=== PATIENT | female | born 1975 | race Caucasian/White ===

== ENCOUNTER 2021-10-13 10:01 | Outpatient (REF) | payer OTHER, SELFPAY | END 2021-10-13 10:02 | disposition home or self-care (01) | LOC: HO.WFDLDS 10:01 | PROVIDERS: Visit Provider Hospitalist | DX: Z20.822 Contact with and (suspected) exposure to COVID-19 (principal); J02.8 Acute pharyngitis due to other specified organisms; B97.89 Other viral agents as the cause of diseases classified elsewhere | CPT/HCPCS: U0003; U0005 ==

== ENCOUNTER 2021-11-20 09:22 | Outpatient (REF) | payer OTHER, SELFPAY ==
[2021-11-20 11:13] LABS: MANUAL DIFF FLAG NO
[2021-11-20 11:19] LABS: Basophils Percent Auto 0.6 % (0-2); Eosinophils Absolute Auto 0.2 X10*3/uL (0.0-0.4); Eosinophils Percent Auto 2.6 % (0-4); Hematocrit 39.8 % (37.0-47.0); Hemoglobin 12.9 g/dl (12.0-16.0); Imm Gran Abs Auto 0.02 X10*3/uL (0.00-0.03); Imm Gran Pct Auto 0.3 % (0.0-0.4); Lymphocytes Absolute Auto 1.4 X10*3/uL (1.2-4.9); Mean Corpuscular HGB Conc 32.4 g/dl (31.0-35.0); Mean Corpuscular Hemoglobin 27.6 pg (27.0-33.0); Mean Platelet Volume 10.4 fL (9.4-12.3); Monocytes Absolute Auto 0.6 X10*3/uL (0.1-1.2); Monocytes Percent Auto 8.8 % (2-11); Neutrophils Absolute Auto 4.9 x10*3/uL (2.0-8.3); Neutrophils Percent Auto 67.7 % (45-73); Platelet Count 344 X10*3/uL (160-400); Red Blood Count 4.68 X10*6/uL (4.20-5.50); Red Cell Distribution Width 14.7 % (11.0-16.0); White Blood Count 7.2 X10*3/uL (4.8-10.8)
[2021-11-20 11:54] LABS: Alanine Aminotransferase 15 U/L (0-31); Albumin Level 4.1 g/dL (3.5-5.0); Alkaline Phosphatase 77 U/L (39-117); Anion Gap 14 (12-20); Aspartate Amino Transferase 14 U/L (5-31); Bilirubin Direct 0.2 mg/dL (0.0-0.5); Bilirubin Total 0.5 mg/dL (0.0-1.0); Blood Urea Nitrogen 19 mg/dL (9-16); Calcium 9.2 mg/dL (8.4-10.2); Carbon Dioxide 26 mmol/L (22-29); Chloride 102 mmol/L (96-108); Cholesterol 211 mg/dL; Estimated Glomerular Filt Rate > 60; Glucose Fasting 96 mg/dL (60-99); HDL Cholesterol 61 mg/dL; LDL Cholesterol Calculated 136 mg/dl; Potassium 4.7 mmol/L (3.3-5.1); Sodium 137 mmol/L (135-145); Triglycerides 74 mg/dL
[2021-11-20 11:56] LABS: TSH reflex Free T4 5.18 uIU/mL (0.32-4.0)
[2021-11-20 12:03] LABS: Vitamin B12 300 pg/mL (200-900)
[2021-11-20 12:49] LABS: Free T4 (Free Thyroxine) 0.78 ng/dL (0.71-1.85)
[2021-11-24 11:37] LABS: Vitamin D 25-OH, D2 <4 ng/mL; Vitamin D 25-OH, D3 20 ng/mL; Vitamin D 25-OH, Total 20 ng/mL (30-100)
== END 2021-11-20 09:23 | disposition home or self-care (01) ==
LOC: HO.HMGCLDS 09:22
PROVIDERS: Internal Medicine; Visit Provider Family Medicine
DX: E55.9 Vitamin D deficiency, unspecified (principal); E53.8 Deficiency of other specified B group vitamins; F33.9 Major depressive disorder, recurrent, unspecified; F41.1 Generalized anxiety disorder; I10 Essential (primary) hypertension
CPT/HCPCS: 36415; 80048; 80061; 80076; 82306; 82607; 84439; 84443; 85025

== ENCOUNTER 2022-01-30 10:50 | Outpatient (REF) | payer OTHER, SELFPAY ==
[2022-01-30 14:03] LABS: Free T4 (Free Thyroxine) 0.74 ng/dL (0.71-1.85)
[2022-02-01 06:56] LABS: Triiodothyronine T3 Total 109 ng/dL (76-181)
== END 2022-01-30 10:51 | disposition home or self-care (01) ==
LOC: HO.WFDLDS 10:50
PROVIDERS: Visit Provider Family Medicine
DX: E03.9 Hypothyroidism, unspecified (principal)
CPT/HCPCS: 36415; 84439; 84443; 84480

== ENCOUNTER → 2022-05-08 09:08 | Outpatient (BNVA) | payer OTHER, SELFPAY | PROVIDERS: PCP Family Medicine; Visit Provider Internal Medicine Endocrinology, Diabetes & Metabolism | DX: E03.9 Hypothyroidism, unspecified (principal) | CPT/HCPCS: 99202 ==

== ENCOUNTER 2022-07-10 10:00 | Outpatient (REF) | payer OTHER, SELFPAY ==
[2022-07-10 13:50] LABS: Free T4 (Free Thyroxine) 1.07 ng/dL (0.71-1.85); Thyroid Stimulating Hormone 1.93 uIU/mL (0.32-4.0)
[2022-07-16 18:01] LABS: Thyroid Peroxidase Antibodies 243 IU/mL (<9)
== END 2022-07-10 10:01 | disposition home or self-care (01) ==
LOC: HO.WFDLDS 10:00
PROVIDERS: Visit Provider Internal Medicine Endocrinology, Diabetes & Metabolism
DX: E03.9 Hypothyroidism, unspecified (principal)
CPT/HCPCS: 36415; 84439; 84443; 86376

== ENCOUNTER 2022-10-25 16:22 | Outpatient (REF) | payer OTHER, SELFPAY ==
--- NOTE | ~2022-10-25 | XR_ITS ---
EXAMINATION: XR SHOULDER, LEFT CLINICAL INFORMATION: Shoulder pain COMPARISON: None TECHNIQUE: Three views of the left shoulder. FINDINGS: No fracture or dislocation. The glenohumeral joint is well aligned. The joint space is maintained. The acromioclavicular joint is intact. The visualized lung is clear. The visualized ribs are intact. XR/XR shoulder LT min 2V IMPRESSION: Normal left shoulder.
== END 2022-10-25 16:23 | disposition home or self-care (01) ==
LOC: HO.HOSX 16:22
PROVIDERS: Visit Provider Orthopaedic Surgery
DX: M75.02 Adhesive capsulitis of left shoulder (principal)
CPT/HCPCS: 20610; 73030; 99202; J1100

== ENCOUNTER 2023-04-26 14:03 | Outpatient (AMB) | payer OTHER, SELFPAY ==
[2023-04-26 14:07] VITALS: BP 128/66; PULSE 90; RESP 12; TEMP 36.6; O2SAT 99; BMI 39.7
--- NOTE | 2023-04-26 14:07 | A.OFFPC_ITS ---
Vital Signs 04/26/23 14:07 Height 5 ft 5 in Weight 238 lb 6 oz BMI 39.7 BP 128/66 Blood Pressure Location Rt brachial Position Sitting Respiration 12 Pulse 90 Pulse Source Pulse Oximeter Temp 97.9 F Temp Source Temporal Artery Scan Pulse Oximetry (%) 99 Oxygen Delivery Method Room Air Intake Visit Reasons: CPE Commercial Lender Required: No Accompanied by: Self / Same As Patient Allergies No Known Allergies [No Known Allergies*] Allergy (Verified 04/26/23 14:13) Medication List - Last Reconciled 04/26/23 by Stas Del Toro MD cholecalciferol (vitamin D3) 50 mcg PO DAILY 30 days clonidine HCl 0.1 mg PO BEDTIME PRN cyclobenzaprine 10 mg PO Q12H PRN 5 days levothyroxine 75 mcg PO DAILY 90 days lisinopril-hydrochlorothiazide 10-12.5 mg 1 tab PO DAILY 3 months sertraline 75 mg (1.5 x 50 mg) PO DAILY 30 days Tobacco use date assessed: 04/26/23 Dental Screening Dental Screen Date: 04/26/23 Did you have a dental visit in the last 12 months?: No Did you have a dental problem in the last 6 months where you did not have access to dental care?: Yes Was dental information given to patient?: Yes HPI CPE HPI Details 48 y/o female presents for a CPE with f/u labs and health maintenance. No recent labs to review. Blood pressure today is 128/66. She is on lisinopril-HCTZ 10-12.5mg daily. She notes she did not take her meds this morning and questions whether or not she can drop a BP medication. 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 She notes she has tried scheduling for a colonoscopy but the group she had called had been behind. [facility] Medical History No pertinent past medical history Surgical History History of section Family History Father Diabetes mellitus HTN (hypertension) History of CVA (cerebrovascular accident) High cholesterol Mother Diabetes mellitus HTN (hypertension) Colon polyps Paternal Grandmother Diabetes mellitus Brother No problems noted. Brother No problems noted. Sister No problems noted. Sister No problems noted. Daughter No problems noted. 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 1. Little interest or pleasure in doing things: not at all 2. Feeling down, depressed, or hopeless: not at all 3. Trouble falling or staying asleep, or sleeping too much: several days 4. Feeling tired or having little energy: several days 5. Poor appetite or overeating: not at all 6. Feeling bad about yourself - or that you are a failure or have let yourself or your family down: not at all 7. Trouble concentrating on things, such as reading the newspaper or watching television: not at all 8. Moving or speaking so slowly that other people could have noticed. Or the opposite - being so fidgety or restless that you have been moving around a lot more than usual: not at all 9. Thoughts that you would be better off or of hurting yourself in some way: not at all Total score: 2 Depression Screening Interpretation: Negative Source: Developed by Drs. Tony Gutiérrez, Danni Lim, Héctor Calle and colleagues, with an educational chu from [employer]. Thrive Questionnaire Date Thrive assessed: 04/26/23 I am a: Patient What is your living situation today?: I have a steady place to live Within the past 12 months, did the food you bought not last and you didn't have the money to get more?: Never true Within the past 12 months, did you worry whether your food would run out before you got money to buy more?: Never true Do you have trouble paying for medicines?: No Do you have trouble getting transportation to medical appointments?: No Do you have trouble paying your heating and electricity bill?: No Do you have trouble taking care of your child, family member or friend?: No Do you have trouble with day-to-day activities such as bathing, preparing meals, shopping, managing finances, etc.?: No Are you currently unemployed and looking for a job?: No Are you interested in more education?: No Please select the resources that you would like help with: None Currently or been in a relationship where the following occur: no concerns reported AUDIT C Alcohol Use Questionnaire (AUDIT-C) 1. How often do you have a drink containing alcohol?: 2-3 times a week 2. How many drinks containing alcohol do you have on a typical day when you are drinking?: 1 or 2 3. How often do you have six or more drinks on one occasion?: Never Total Score: 3 IBRAHIMA-7 AMB Questionnaire IBRAHIMA-7 Date IBRAHIMA - 7 assessed: 04/26/23 Feeling nervous, anxious, or on edge: 0 = Not at all Not being able to stop or control worryin = Not at all Worrying too much about different things: 0 = Not at all Trouble relaxin = Not at all Being so restless that it is hard to sit still: 0 = Not at all Becoming easily annoyed or irritable: 0 = Not at all Feeling afraid as if something awful might happen: 0 = Not at all Total IBRAHIMA-7 score (0-4 normal; 5-9 mild; 10-14 moderate; 15-21 severe): 0 Source: Developed by Drs. Tony Gutiérrez, Danni Lim, Héctor Calle and colleagues, with an educational chu from [employer]. Review of Systems Const Denies chills, Denies fatigue, Denies fever(s), Denies headache(s) and Denies weakness Eyes Denies change in vision ENT Denies dizziness, Denies headache(s), Denies hearing loss, Denies nasal congestion, Denies sinus pain, Denies sinus pressure and Denies sore throat Card Denies chest pain, Denies lightheadedness, Denies dyspnea and Denies other (palpitations) Resp Denies cough, Denies dyspnea and Denies wheezing GI Denies abdominal pain, Denies melena, Denies hematochezia, Denies change in bowel habits, Denies dyspepsia and Denies nausea Denies hematuria and Denies dysuria Musc Denies abnormal gait, Denies myalgias, Denies arthralgias, Denies numbness and Denies tingling Skin/Breast Denies rash, Denies unusual bruising and Denies wounds Neuro Denies abnormal gait, Denies dizziness, Denies headache(s), Denies memory loss, Denies numbness, Denies Sensory deficit (Neuro), Denies tingling and Denies weakness Psych Denies anxiety, Denies depression and Denies memory loss Endo Denies cold intolerance, Denies fatigue, Denies heat intolerance, Denies polydipsia and Denies polyuria Dave/Lymph Denies easy bleeding and Denies easy bruising Aller/Immun Denies wheezing Physical exam (Primary Care) Vital Signs: Last Vital Signs Temp 97.9 F 04/26/23 14:07 Pulse 90 04/26/23 14:07 Resp 12 04/26/23 14:07 BP 128/66 04/26/23 14:07 Pulse Ox 99 04/26/23 14:07 Oxygen Delivery Method Room Air 04/26/23 14:07 BMI result Body Mass Index 39.7 Tobacco/Smoking Status: Tobacco use Status Tobacco use date assessed 04/26/23 04/26/23 14:21 Patient Tobacco Use Status Never used Tobacco 04/26/23 14:21 e-Cigarette/Vaping Use Never Used 04/26/23 14:21 PHQ-9: PHQ-9 Score PHQ-9: Total score 2 04/26/23 14:36 Depression Screening Interpretation: Negative Thrive Assessment: Date of Thrive Assessment Date Thrive assessed 04/26/23 04/26/23 14:21 Currently or been in a relationship where the following occur: no concerns reported Const General: no acute distress, well developed, alert and awake Nutritional Appearance: well nourished Orientation/consciousness: patient oriented x3 HENMT Head: Yes normocephalic and Yes atraumatic Ears: hearing grossly normal bilaterally and TM's normal bilaterally General nose exam: Normal external nose present and Normal nares present Mouth: Normal oral and palatal mucosa present and moist mucous membranes Teeth and gingiva: dentition normal Throat: Yes posterior oropharynx normal Eyes General: appearance normal, both eyes and all related structures Pupils: Equal, round and reactive pupils present and Pupil accommodation reflex normal EOM: EOMs intact bilaterally Neck Neck: Yes normal visual inspection, Yes no lymphadenopathy and Yes trachea midline Thyroid: Thyroid normal Carotids: no bruits Lymphatic: no lymphadenopathy noted Chest Chest palpation & inspection: normal inspection of the chest Resp Effort & Inspection: normal respiratory effort Auscultation: clear to auscultation bilaterally Cardio Rate: regular rate Rhythm: regular rhythm Heart sounds: S1 normal heart sound present, S2 normal heart sound present, no gallops, no murmurs and no rubs Bruits: no abdominal aortic bruits and no carotid bruits GI Palpation (GI): No Abdominal aortic bruit present, Soft to palpation, nontender, No hepatosplenomegaly present and No Rebound tenderness present Auscultation: normal bowel sounds General: Yes no CVA tenderness Back/Spine/Pelvis Back: no CVA tenderness Cervical Spine: cervical ROM normal and No Cervical spine tenderness Thoracic/Lumbar Spine: thoraco-lumbar ROM normal, No pain with thoraco-lumbar ROM, No thoracic spinal tenderness and No lumbar spinal tenderness Skin Lesions: no lesions Rashes: no rashes Trauma: no lacerations or abrasions Wounds: no wounds Nails: normal Neuro General: patient oriented x3 Cranial nerves: Yes Equal, round and reactive pupils present Cognition (Neuro): normal cognition Gait exam (Neuro): Normal gait present Motor exam (neuro): 5/5 motor strength present throughout Sensory Exam: No Sensory deficit (Neuro) Deep tendon reflexes (DTR's): Right patellar reflex intensity grade: 2+ and Left patellar reflex intensity grade: 2+ Extrem General: Yes normal to inspection and No edema Psych Appearance: grossly normal Affect: normal affect Attitude: cooperative Thought process: Normal thought process present Assessment and Plan Assessment & Plan (1) Adult general medical exam: Code(s): Z00.00 - Encounter for general adult medical examination without abnormal findings Plan: 48-year-old female presents for complete physical exam Encouraged healthy diet with active lifestyle and plenty of exercise (2) Hypertension, essential: Code(s): I10 - Essential (primary) hypertension Plan: Blood pressure is controlled. Goal is less than 140/90 Continue current medication regimen (3) Breast cancer screening by mammogram: Code(s): Z12.31 - Encounter for screening mammogram for malignant neoplasm of breast Plan: Patient is overdue for a mammogram Mammogram is ordered and I encouraged her to schedule her appointment (4) Screening for cervical cancer: Code(s): Z12.4 - Encounter for screening for malignant neoplasm of cervix Plan: Due for Pap smear Referred to [facility] (5) Screening for colon cancer: Code(s): Z12.11 - Encounter for screening for malignant neoplasm of colon Plan: Already referred to [facility] She will continue to follow up or let me know if there is any problem Orders: Orders MM tomosynthesis screening BI Today Z12.31 - Encounter for screening mammogram for malignant neoplasm of breast Comprehensive [place]. Panel Fast Today Z00.00 - Encounter for general adult medical examination without abnormal findings, Z12.4 - Encounter for screening for malignant neoplasm of cervix Lipid Panel Today Z00.00 - Encounter for general adult medical examination without abnormal findings, Z12.4 - Encounter for screening for malignant neoplasm of cervix Microalbumin, Random (w Creat) Today I10 - Essential (primary) hypertension, Z12.4 - Encounter for screening for malignant neoplasm of cervix Complete Blood Count Auto Diff Today Z00.00 - Encounter for general adult m edical examination without abnormal findings, Z12.4 - Encounter for screening for malignant neoplasm of cervix UA and rflx microscopic Today Z00.00 - Encounter for general adult medical examination without abnormal findings, Z12.4 - Encounter for screening for malignant neoplasm of cervix Triiodothyronine T3 Total Today E03.9 - Hypothyroidism, unspecified, Z12.4 - Encounter for screening for malignant neoplasm of cervix Free T4 (Free Thyroxine) Today E03.9 - Hypothyroidism, unspecified, Z12.4 - Encounter for screening for malignant neoplasm of cervix Thyroid Stimulating Hormone Today E03.9 - Hypothyroidism, unspecified, Z12.4 - Encounter for screening for malignant neoplasm of cervix Referrals CIVIL CLERK Referral Z12.4 - Encounter for screening for malignant neoplasm of cervix Coding Level of Care Code Est Pt Prev Care 40-64y(07042) Diagnoses Adult general medical exam Z00.00 Hypertension, essential I10 Breast cancer screening by mammogram Z12.31 Screening for cervical cancer Z12.4 Screening for colon cancer Z12.11
== END 2023-04-26 14:52 | disposition home or self-care (01) ==
PROVIDERS: PCP Family Medicine; Visit Provider Family Medicine
DX: Z00.00 Encounter for general adult medical examination without abnormal findings (principal); I10 Essential (primary) hypertension; Z12.31 Encounter for screening mammogram for malignant neoplasm of breast; Z12.4 Encounter for screening for malignant neoplasm of cervix; Z12.11 Encounter for screening for malignant neoplasm of colon
CPT/HCPCS: 99396

== ENCOUNTER 2023-10-30 09:07 | Outpatient (AMB) | payer OTHER, SELFPAY ==
[2023-10-30 09:13] VITALS: BP 130/74; PULSE 76; RESP 13; TEMP 36.4; O2SAT 99; BMI 41.0
--- NOTE | 2023-10-30 09:13 | A.OFFPC_ITS ---
Vital Signs 10/30/23 09:13 Height 5 ft 5 in Weight 246 lb 4 oz BMI 41.0 BP 130/74 Blood Pressure Location Rt brachial Position Sitting Respiration 13 Pulse 76 Pulse Source Pulse Oximeter Temp 97.6 F Temp Source Temporal Artery Scan Pulse Oximetry (%) 99 Oxygen Delivery Method Room Air Intake Visit Reasons: [facility] Intake Note: Patient states she was told that she has gallstones. Client Support Associate Required: No Accompanied by: Self / Same As Patient Allergies No Known Allergies [No Known Allergies*] Allergy (Verified 10/30/23 09:48) Medication List - Last Reconciled 10/30/23 by Cori Brown, PATROL COMMUNITY SERVICE OFFICER- cholecalciferol (vitamin D3) 50 mcg PO DAILY 30 days clonidine HCl 0.1 mg PO BEDTIME PRN levothyroxine 75 mcg PO DAILY 90 days lisinopril-hydrochlorothiazide 10-12.5 mg 1 tab PO DAILY 3 months sertraline 75 mg (1.5 x 50 mg) PO DAILY 30 days Tobacco use date assessed: 10/30/23 Dental Screening Dental Screen Date: 10/30/23 Did you have a dental visit in the last 12 months?: No Did you have a dental problem in the last 6 months where you did not have access to dental care?: No Was dental information given to patient?: Yes HPI HPI Comments History of Present Illness Details Here today for hospital discharge follow-up She went to [facility] 10/24[facility]23 for complaints of: Unbearable abd pain w/ vomiting that started the day of the visit US showed gallstones otherwise negative. Offered and declined CT scan Discharge home with New meds: omeprazole - taking as directed Zofran - has not needed Today reports that she is feeling much better. Avoiding fatty foods since. Notes pain in abd after eating foods that are higher in fat. No more n/v. Normal voiding and elimination Denies fever, chills. PFSH Medical History Gallstones No pertinent past medical history Surgical History History of section Family History Father Diabetes mellitus HTN (hypertension) History of CVA (cerebrovascular accident) High cholesterol Mother Diabetes mellitus HTN (hypertension) Colon polyps Paternal Grandmother Diabetes mellitus Brother No problems noted. Brother No problems noted. Sister No problems noted. Sister No problems noted. Daughter No problems noted. 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 Tony Gutiérrez, Danni Lim, Héctor Calle and colleagues, with an educational chu from [employer]. Review of Systems Const All systems reviewed & are unremarkable except as noted in HPI and below Physical exam (Primary Care) Vital Signs: Last Vital Signs Temp 97.6 F 10/30/23 09:13 Pulse 76 10/30/23 09:13 Resp 13 10/30/23 09:13 BP 130/74 10/30/23 09:13 Pulse Ox 99 10/30/23 09:13 Oxygen Delivery Method Room Air 10/30/23 09:13 BMI result Body Mass Index 41.0 Tobacco/Smoking Status: Tobacco use Status Tobacco use date assessed 10/30/23 10/30/23 09:20 Patient Tobacco Use Status Never used Tobacco 10/30/23 09:20 e-Cigarette/Vaping Use Never Used 10/30/23 09:20 Thrive Assessment: Date of Thrive Assessment Date Thrive assessed 04/26/23 10/30/23 09:20 Const Other: awake alert NAD scleras nonicteric MMM Abd soft, round, nontender, negative murphys sign, negative peritoneal signs, bs wnl x 4 quads Assessment and Plan Assessment & Plan (1) Hospital discharge follow-up: Code(s): Z09 - Encounter for follow-up examination after completed treatment for conditions other than malignant neoplasm (2) Biliary colic: Code(s): K80.50 - Calculus of bile duct without cholangitis or cholecystitis without obstruction (3) Gallstones without obstruction of gallbladder: Code(s): K80.20 - Calculus of gallbladder without cholecystitis without obstruction Qualifiers: Cholelithiasis location: gallbladder Cholecystitis presence: without cholecystitis Qualified Code(s): K80.20 - Calculus of gallbladder without cholecystitis without obstruction Plan: Total time spent caring for the patient today was 40 minutes. This includes time spent before the visit reviewing the chart, time spent during the visit, and time spent after the visit on documentation We will send her to the general surgeon for evaluation and treatment. She was educated on reasons to seek emergency room level care and that would include severe abdominal pain, nausea and vomiting that is not responsive to Zofran. Plan This note is constructed using voice recognition software. While every effort has been made to ensure accuracy in property maintenance supervisor, still errors may have been included Sometimes, these errors may affect the content or meaning of the given sentence . Orders: Referrals General Surgery Referral K80.20 - Calculus of gallbladder without cholecystitis without obstruction, K80.50 - Calculus of bile duct without cholangitis or chol ecystitis without obstruction, Z09 - Encounter for follow-up examination after completed treatment for conditions other than malignant neoplasm Coding Level of Care Code Est Pt Level 5 (10325) Diagnoses Hospital discharge follow-up Z09 Biliary colic K80.50 Calculus of gallbladder without cholecystitis without obstruction K80.20 Cholelithiasis location: gallbladder Cholecystitis presence: without cholecystitis
== END 2023-10-30 10:06 | disposition home or self-care (01) ==
PROVIDERS: PCP Family Medicine; Visit Provider Nurse Practitioner Family
DX: K80.50 Calculus of bile duct without cholangitis or cholecystitis without obstruction (principal); K80.20 Calculus of gallbladder without cholecystitis without obstruction; Z09 Encounter for follow-up examination after completed treatment for conditions other than malignant neoplasm
CPT/HCPCS: 99215

== ENCOUNTER 2023-11-11 14:02 | Outpatient (AMB) | payer OTHER, SELFPAY ==
[2023-11-11 14:15] VITALS: BP 142/65; PULSE 70; BMI 40.6
--- NOTE | 2023-11-11 14:15 | A.OFFVIS_ITS ---
Intake Vital Signs 11/11/23 14:15 Height 5 ft 5 in Weight 244 lb BMI 40.6 BP 142/65 H Blood Pressure Location Rt brachial Position Sitting Pulse 70 Intake Visit Reasons: calculus of gallbladder Intake Note: This patient presents for calculus of the gallbladder assessment. Pt c/o; reports occasional constipation, reports avoiding fatty foods, reports had an episode of nausea and vomiting has improved. Funeral Sales Manager Required: No Accompanied by: Self / Same As Patient Allergies No Known Allergies [No Known Allergies*] Allergy (Verified 11/11/23 14:22) Medication List - Last Reconciled 11/11/23 by Shlomo Zhao MD cholecalciferol (vitamin D3) 50 mcg PO DAILY 30 days clonidine HCl 0.1 mg PO BEDTIME PRN levothyroxine 75 mcg PO DAILY 90 days lisinopril-hydrochlorothiazide 10-12.5 mg 1 tab PO DAILY 3 months sertraline 75 mg (1.5 x 50 mg) PO DAILY 30 days HPI calculus of gallbladder HPI Details 48[facility] She apparently had a ultrasound done in the ER in [facility] last month. She was told that she had gallstones. She states that she went to the ER that day because of diffuse abdominal pain and a lot of nausea and vomiting. She says that she has had no further episodes since then. She does state that her pain was not on the right upper quadrant. She says she has had no other GI complaints anymore. [facility] Medical History (Updated 11/11/23 @ 14:31 by Shlomo Zhao MD) Thyroid disease Hypertension Morbid obesity Gallstones No pertinent past medical history Surgical History History of section Family History Father Diabetes mellitus HTN (hypertension) History of CVA (cerebrovascular accident) High cholesterol Mother Diabetes mellitus HTN (hypertension) Colon polyps Paternal Grandmother Diabetes mellitus Brother No problems noted. Brother No problems noted. Sister No problems noted. Sister No problems noted. Daughter No problems noted. 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 Current occupational exposures/hazards: No Cognitive needs: No Hearing needs: No Vision needs: No Review of Systems Const Denies chills and Denies fever(s) Card Denies chest pain, Denies dyspnea and Denies dyspnea on exertion Resp Denies cough, Denies dyspnea and Denies dyspnea on exertion GI Denies hematochezia and Denies change in bowel habits Denies hematuria Musc Denies back pain and Denies limited range of motion Neuro Denies focal weakness and Denies convulsions Psych Denies depression and Denies mood swings Physical Exam Vital Signs: Last Vital Signs Pulse 70 11/11/23 14:15 BP 142/65 H 11/11/23 14:15 BMI result Body Mass Index 40.6 Const Other: Morbidly obese General: comfortable and no acute distress Orientation/consciousness: patient oriented x3 Neck Neck: Yes no lymphadenopathy Resp Auscultation: clear to auscultation bilaterally Cardio Rhythm: regular rhythm GI Palpation (GI): Soft to palpation, nontender and no guarding Neuro General: patient oriented x3 Assessment & Plan Assessment & Plan (1) Gallstones without obstruction of gallbladder: Code(s): K80.20 - Calculus of gallbladder without cholecystitis without obstruction Qualifiers: Cholelithiasis location: gallbladder Cholecystitis presence: without cholecystitis Qualified Code(s): K80.20 - Calculus of gallbladder without cholecystitis without obstruction Plan: She describes having diffuse abdominal pain and a lot of nausea and vomiting when she went to the ER last month in [facility]. She has had no further episodes since then. Her abdominal ultrasound did show gallstones without cholecystitis Her pain is atypical for gallbladder disease. I am going to order for a CAT scan in her of the abdomen pelvis. I will see her in the office after her CT scan. She states that she is also due for screening colonoscopy. She describes her mother having colon cancer in her 60s. We will schedule her for colonoscopy as well down the line. Orders: Orders Creatinine Today K80.20 - Calculus of gallbladder without cholecystitis without obstruction CT abdomen pelvis w IV con Today K80.20 - Calculus of gallbladder without cholecystitis without obstruction Blood Urea Nitrogen Today K80.20 - Calculus of gallbladder without cholecystitis without obstruction Coding Level of Care Code New Pt Level 3 (34766) Diagnoses Calculus of gallbladder without cholecystitis without obstruction K80.20 Cholelithiasis location: gallbladder Cholecystitis presence: without cholecystitis
== END 2023-11-11 14:41 | disposition home or self-care (01) ==
PROVIDERS: PCP Family Medicine; Visit Provider Surgery
DX: K80.20 Calculus of gallbladder without cholecystitis without obstruction (principal)
CPT/HCPCS: 99203

== ENCOUNTER 2023-11-11 14:02 | Outpatient (REF) | payer OTHER, SELFPAY ==
[2023-11-11 16:15] LABS: Blood Urea Nitrogen 22 mg/dL (9-16); Estimated Glomerular Filt Rate > 60
== END 2023-11-11 14:03 | disposition home or self-care (01) ==
LOC: HO.LAB 14:02
PROVIDERS: PCP Family Medicine; Visit Provider Surgery
DX: K80.20 Calculus of gallbladder without cholecystitis without obstruction (principal); Z79.899 Other long term (current) drug therapy
CPT/HCPCS: 36415; 82565; 84520; 99202

== ENCOUNTER 2023-12-11 11:01 | Outpatient (REF) | payer OTHER, SELFPAY ==
[2023-12-12 11:46] LABS: CT PCR NOT DETECTED (Not Detect.); NG PCR NOT DETECTED (Not Detect.)
[2023-12-12 14:05] LABS: BV Int Neg Control Negative (Negative); BV Int Pos Control Positive (Positive)
[2023-12-21 09:18] LABS: HPV mRNA E6/E7 rflx Not Detected (Not Detected)
== END 2023-12-11 11:02 | disposition home or self-care (01) ==
LOC: HO.LNP 11:01
PROVIDERS: PCP Family Medicine; Visit Provider Advanced Practice Midwife
DX: Z01.419 Encounter for gynecological examination (general) (routine) without abnormal findings (principal); Z11.51 Encounter for screening for human papillomavirus (HPV); Z11.3 Encounter for screening for infections with a predominantly sexual mode of transmission; E66.9 Obesity, unspecified
CPT/HCPCS: 0353U; 87480; 87510; 87624; 87660; 88142; 99386

== ENCOUNTER 2023-12-11 11:01 | Outpatient (AMB) | payer OTHER, SELFPAY ==
[2023-12-11 11:23] VITALS: BP 144/72; BMI 39.4
--- NOTE | 2023-12-11 11:23 | MHC.OFFVIS ---
Intake Vital Signs 12/11/23 11:23 Height 5 ft 6 in Weight 244 lb BMI 39.4 BP 144/72 H Intake Visit Reasons: New patient Annual Intake Note: Irregular menses Prototype Assembler Electronics Required: No Information Interpreted: non-clinical & clinical Research Laboratory Manager: Research Laboratory Manager Present (Roberto) Allergies No Known Allergies [No Known Allergies*] Allergy (Verified 12/11/23 11:25) Medication List - Last Reconciled 12/11/23 by Marlin Walters CNM cholecalciferol (vitamin D3) 50 mcg PO DAILY 30 days clonidine HCl 0.1 mg PO BEDTIME PRN levothyroxine 75 mcg PO DAILY 90 days lisinopril-hydrochlorothiazide 10-12.5 mg 1 tab PO DAILY 3 months sertraline 75 mg (1.5 x 50 mg) PO DAILY 30 days Is last menstrual period known: Yes Last menstrual period: 12/02/23 Post menopausal: No HPI New patient Annual HPI Details 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 She has not having any particular concerns today, she is starting to miss periods here and there. She does have some menopausal symptoms. She is awaiting a workup for an episode of severe abdominal pain and will be seeing a surgeon after a CT scan. She has not seen a dentist in a long time she has poor dentition. 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 COUNTS INCLUDE 234 BEDS AT THE [facility] Medical History (Updated 12/11/23 @ 16:05 by Marlin Walters CNM) Thyroid disease Hypertension Morbid obesity Gallstones No pertinent past medical history Surgical History History of section Family History Father Diabetes mellitus HTN (hypertension) History of CVA (cerebrovascular accident) High cholesterol Mother Diabetes mellitus HTN (hypertension) Colon polyps Paternal Grandmother Diabetes mellitus Brother No problems noted. Brother No problems noted. Sister No problems noted. Sister No problems noted. Daughter No problems noted. 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 Current occupational exposures/hazards: No Cognitive needs: No Hearing needs: No Vision needs: No Female Reproductive History Menstrual Age of Menarche: 14 Duration of menses: 3-5 days Date of last menstrual period: 12/02/23 control method: none Total pregnancies: 1 Full term: 1 Number of Living Children: 1 Date of last pap smear: 09/01/12 (negative) Physical Exam Vital Signs: Last Vital Signs BP 144/72 H 12/11/23 11:23 BMI result Body Mass Index 39.4 Const General: healthy appearing, comfortable, no acute distress, well developed and alert Nutritional Appearance: average body habitus Orientation/consciousness: patient oriented x3 Limitations: no limitations HEENT Head: Yes normocephalic Teeth and gingiva: poor dentition Neck Neck: Yes normal visual inspection Chest Chest palpation & inspection: normal inspection of the chest Breast/axilla inspection: normal inspection of the breasts and normal inspection of the axillae Breast/axilla palpation: normal palpation of the breasts and normal palpation of the axillae Resp Effort & Inspection: normal respiratory effort GI Inspection: Yes normal to inspection, No Abdominal wall edema and No distended Palpation (GI): Soft to palpation and nontender Other: Normal computer systems analyst exam cervix pink normal smooth moist uterus nontender nonenlarged adnexa within normal limits fair tone with Kegel General: Yes bladder normal to palpation External Female Exam: normal external appearance and normal appearance of the urethra Speculum Exam - Vagina: normal appearance of the vagina, normal palpation and normal vaginal discharge Speculum Exam - Cervix: normal appearance of the cervix, normal palpation and nontender Bimanual exam- vagina & uterus: normal bimanual exam, normal palpation, uterine size normal, bladder normal to palpation, consistency normal, normal palpation, uterine mobility normal, uterine shape normal, No Cervical tenderness present, non-tender and no cervical motion tenderness Bimanual Exam- Adnexa, other: normal adnexae, no masses, normal and No adnexal tenderness Neuro General: patient oriented x3 Assessment & Plan Assessment & Plan (1) Screening for cervical cancer: Code(s): Z12.4 - Encounter for screening for malignant neoplasm of cervix (2) Women's annual routine gynecological examination: Code(s): Z01.419 - Encounter for gynecological examination (general) (routine) without abnormal findings (3) Obesity (BMI 30-39.9): Code(s): E66.9 - Obesity, unspecified Plan -----Discussed in this visit the following: healthy balanced diet, regular and consistent exercise, getting recommended health screens, doing the best she can for her particular health concerns, kegel exercises, pap smear screening and followup recommendations, mammography screening and SBE, normal changes in cycles in her life stage--- . I suggested she go upstairs to see if she would be able to seek dental care here or in their [place] site as she lives in [place] She will be scheduling her mammogram as appropriate. And following up with her other medical appointments. Orders: Orders CT NG by PCR Today Z11.3 - Encounter for screening for infections with a predominantly sexual mode of transmission Bacterial Vaginosis Panel Today Z11.3 - Encounter for screening for infections with a predominantly sexual mode of transmission Pap Smear Today Z12.4 - Encounter for screening for malignant neoplasm of cervix Coding Level of Care Code New Pt Prev Care 40-64y(18740) Diagnoses Screening for cervical cancer Z12.4 Women's annual routine gynecological examination Z01.419 Obesity (BMI 30-39.9) E66.9
== END 2023-12-11 12:57 | disposition home or self-care (01) ==
PROVIDERS: PCP Family Medicine; Visit Provider Advanced Practice Midwife
DX: Z12.4 Encounter for screening for malignant neoplasm of cervix (principal); Z01.419 Encounter for gynecological examination (general) (routine) without abnormal findings; E66.9 Obesity, unspecified
CPT/HCPCS: 99386

== ENCOUNTER 2023-12-21 08:00 | Outpatient (REF) | payer OTHER, SELFPAY ==
[2023-12-21 11:10] LABS: MANUAL DIFF FLAG NO
[2023-12-21 11:25] LABS: Basophils Percent Auto 0.6 % (0-2); Eosinophils Absolute Auto 0.4 X10*3/uL (0.0-0.4); Eosinophils Percent Auto 5.1 % (0-4); Hematocrit 40.4 % (37.0-47.0); Hemoglobin 13.3 g/dl (12.0-16.0); Imm Gran Abs Auto 0.01 X10*3/uL (0.00-0.03); Imm Gran Pct Auto 0.1 % (0.0-0.4); Lymphocytes Absolute Auto 1.5 X10*3/uL (1.2-4.9); Lymphocytes Percent Auto 20.9 % (20-40); Mean Corpuscular HGB Conc 32.9 g/dl (31.0-35.0); Mean Corpuscular Hemoglobin 28.8 pg (27.0-33.0); Mean Corpuscular Volume 87.4 fL (80.0-98.0); Mean Platelet Volume 10.3 fL (9.4-12.3); Monocytes Absolute Auto 0.6 X10*3/uL (0.1-1.2); Monocytes Percent Auto 8.9 % (2-11); Neutrophils Absolute Auto 4.5 x10*3/uL (2.0-8.3); Neutrophils Percent Auto 64.4 % (45-73); Platelet Count 313 X10*3/uL (160-400); Red Blood Count 4.62 X10*6/uL (4.20-5.50); Red Cell Distribution Width 13.9 % (11.0-16.0); White Blood Count 6.9 X10*3/uL (4.8-10.8)
[2023-12-21 11:29] LABS: Appearance Urine Clear; Color Urine Yellow; Glucose Urine UA Negative (Negative); Leukocyte Esterase Urine Negative (Negative); Nitrite Urine Negative (Negative); Urine Blood Negative (Negative); Urine Ketones Negative (Negative); Urine Protein Negative (Neg-Trace)
[2023-12-21 11:46] LABS: Alanine Aminotransferase 13 U/L (0-31); Alkaline Phosphatase 73 U/L (39-117); Anion Gap 14 (12-20); Aspartate Amino Transferase 14 U/L (5-31); Bilirubin Total 0.5 mg/dL (0.0-1.0); Blood Urea Nitrogen 13 mg/dL (9-16); Carbon Dioxide 26 mmol/L (22-29); Chloride 102 mmol/L (96-108); Cholesterol 200 mg/dL (<200); Estimated Glomerular Filt Rate > 60; Glucose Fasting 93 mg/dL (60-99); HDL Cholesterol 60 mg/dL (>40); LDL Cholesterol Calculated 124 mg/dL (<100); Potassium 4.2 mmol/L (3.3-5.1); Sodium 138 mmol/L (135-145); Total Protein 7.1 g/dL (6.5-8.0); Triglycerides 81 mg/dL (<150)
[2023-12-21 11:56] LABS: Creatinine Urine 133.62 mg/dL; Microalbum/Creatinine Ratio Ur 5.9 ug/mg cr (<30)
[2023-12-21 12:03] LABS: Free T4 (Free Thyroxine) 0.78 ng/dL (0.71-1.85); Thyroid Stimulating Hormone 6.27 uIU/mL (0.32-4.0); Vitamin D 25-OH Total 30.1 ng/mL (>30)
[2023-12-21 12:06] LABS: Folate 8.5 ng/mL (> or = 4.0); Vitamin B12 305 pg/mL (200-900)
[2023-12-23 14:54] LABS: Triiodothyronine T3 Total 133 ng/dL (76-181)
== END 2023-12-21 08:01 | disposition home or self-care (01) ==
LOC: HO.HMGCLDS 08:00
PROVIDERS: PCP Family Medicine; Visit Provider Surgery
DX: Z00.00 Encounter for general adult medical examination without abnormal findings (principal); I10 Essential (primary) hypertension; E03.9 Hypothyroidism, unspecified; E53.8 Deficiency of other specified B group vitamins; E55.9 Vitamin D deficiency, unspecified; K80.20 Calculus of gallbladder without cholecystitis without obstruction; Z12.4 Encounter for screening for malignant neoplasm of cervix
CPT/HCPCS: 36415; 80053; 80061; 81003; 82043; 82306; 82570; 82607; 82746; 84439; 84443; 84480; 85025

== ENCOUNTER 2023-12-25 10:24 | Outpatient (REF) | payer OTHER, SELFPAY ==
--- NOTE | ~2023-12-25 | CT_ITS ---
EXAMINATION: CT ABDOMEN AND PELVIS WITH CONTRAST CLINICAL INFORMATION: Calculus of gallbladder without cholecystitis or obstruction. COMPARISON: None available. TECHNIQUE: Multidetector volumetric images were obtained from the superior aspect of the liver through the pubic symphysis following administration 85 mL of Omnipaque 350 intravenous contrast. Sagittal and coronal reformatted images were obtained on the technologist's workstation. Oral Contrast: No. This CT examination was performed using dose optimization techniques as appropriate, variously including the following: *Automated exposure control. *Adjustment of mA and/or kV according to patient size (this includes techniques or standardized protocols for targeted exams where dose is matched to indication/reason for exam; i.e. extremities or head). *Use of iterative reconstruction technique. DLP: 683 mGy-cm FINDINGS: LUNG BASES: The visualized lung bases are unremarkable. LIVER, GALLBLADDER, AND BILIARY TREE: The liver is normal in size, shape, and attenuation. An 8 mm hypodensity seen in the right lobe of the liver measures water density compatible with a benign simple cyst. No worrisome solid focal hepatic lesion or biliary ductal dilatation is present. The gallbladder is unremarkable with no definite evidence of radiopaque gallstones obvious pericholecystic inflammatory changes. There may be some thickening of the fundus of the gallbladder and gallbladder ultrasound is recommended for better evaluation. PANCREAS: Unremarkable. SPLEEN: Unremarkable. ADRENAL GLANDS: Unremarkable. KIDNEYS AND URETERS: The kidneys are normal in size, shape, and attenuation. Probable bilateral parapelvic cysts are present which need no additional imaging or follow-up. No gross hydronephrosis, hydroureter, or calculi seen. No perinephric stranding. BLADDER: Unremarkable. GASTROINTESTINAL TRACT: The small and large bowel are unremarkable aside from scattered colonic diverticula without diverticulitis. The appendix is not seen with certainty but there is no evidence of appendicitis. ABDOMINAL WALL: No significant hernia is appreciated. LYMPH NODES: Normal. VASCULAR: Unremarkable. PELVIC VISCERA: The uterus and adnexa are unremarkable. A nabothian cyst is present in the cervix. OSSEOUS STRUCTURES: Marked degenerative changes seen at L4-L5 and L5-S1. CT/CT abdomen pelvis w IV con IMPRESSION: 1. No evidence of cholelithiasis. There may be some thickening of the fundus of the gallbladder and gallbladder ultrasound is recommended for better evaluation. 2. Incidental note made of a benign hepatic cyst, colonic diverticulosis without diverticulitis and marked degenerative changes L4-L5 and L5-S1. Fleischner guidelines were followed.
[2023-12-25] MEDS: iohexoL 350 MG/ML 100 ML INFUS..BTL 85 ML IV (10:56)
== END 2023-12-25 10:25 | disposition home or self-care (01) ==
LOC: HO.CT 10:24
PROVIDERS: PCP Family Medicine; Visit Provider Surgery
DX: K80.20 Calculus of gallbladder without cholecystitis without obstruction (principal)
CPT/HCPCS: 74177; Q9967

== ENCOUNTER 2024-01-01 15:23 | Outpatient (AMB) | payer OTHER, SELFPAY ==
--- NOTE | 2024-01-01 15:24 | MHC.OFFVIS ---
Intake Intake Visit Reasons: Ct-Scan follow-up Intake Note: This patient presents for Ct-Scan follow-up. Pt c/o; reports no complaints. 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 She had an ultrasound because of an episode of abdominal pain and this had shown gallstones. However, her pain was very atypical for gallbladder disease. She says that she did not have any right upper quadrant pain I sent for a CT scan because of the atypical nature of her symptoms. She says she has had no further episodes since that time. [facility] Medical History Thyroid disease Hypertension Morbid obesity Gallstones No pertinent past medical history Surgical History History of section Family History Father Diabetes mellitus HTN (hypertension) History of CVA (cerebrovascular accident) High cholesterol Mother Diabetes mellitus HTN (hypertension) Colon polyps Paternal Grandmother Diabetes mellitus Brother No problems noted. Brother No problems noted. Sister No problems noted. Sister No problems noted. Daughter No problems noted. 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 Current occupational exposures/hazards: No Cognitive needs: No Hearing needs: No Vision needs: No Female Reproductive History Menstrual Age of Menarche: 14 Review of Systems Const Denies chills and Denies fever(s) Card Denies chest pain, Denies dyspnea and Denies dyspnea on exertion Resp Denies cough, Denies dyspnea and Denies dyspnea on exertion GI Denies hematochezia and Denies change in bowel habits Denies hematuria Musc Denies back pain and Denies limited range of motion Neuro Denies focal weakness and Denies convulsions Psych Denies depression and Denies mood swings Physical Exam Const Other: Morbidly obese General: comfortable and no acute distress Orientation/consciousness: patient oriented x3 Neck Neck: Yes no lymphadenopathy Resp Auscultation: clear to auscultation bilaterally Cardio Rhythm: regular rhythm GI Palpation (GI): Soft to palpation, nontender and no guarding Neuro General: patient oriented x3 Assessment & Plan Assessment & Plan (1) Gallstones without obstruction of gallbladder: Code(s): K80.20 - Calculus of gallbladder without cholecystitis without obstruction Qualifiers: Cholelithiasis location: gallbladder Cholecystitis presence: without cholecystitis Qualified Code(s): K80.20 - Calculus of gallbladder without cholecystitis without obstruction Plan: Her CT scan does not show any intra-abdominal pathology. I explained to her as well that her previous episode of abdominal pain seemed to be atypical for gallbladder disease. She does not want to proceed with gallbladder surgery at this time. She has had no further episodes of abdominal pain I also recommended for her to discuss proceeding with colonoscopy with her primary care physician because of her age as well as because of her family history of colon cancer with her mother I had a long talk with her about the benefits of weight loss in view of morbid obesity. She can follow up on a p.r.n. basis. Coding Level of Care Code Est Pt Level 3 (98707) Diagnoses Calculus of gallbladder without cholecystitis without obstruction K80.20 Cholelithiasis location: gallbladder Cholecystitis presence: without cholecystitis
== END 2024-01-01 16:03 | disposition home or self-care (01) ==
PROVIDERS: PCP Family Medicine; Visit Provider Surgery
DX: K80.20 Calculus of gallbladder without cholecystitis without obstruction (principal)
CPT/HCPCS: 99213

== ENCOUNTER → 2024-01-01 15:23 | Outpatient (BNVA) | payer OTHER, SELFPAY | PROVIDERS: PCP Family Medicine; Visit Provider Surgery | DX: K80.20 Calculus of gallbladder without cholecystitis without obstruction (principal) | CPT/HCPCS: 99212 ==

== ENCOUNTER 2024-08-18 07:53 | Outpatient (AMB) | payer OTHER, SELFPAY ==
--- NOTE | 2024-08-18 08:01 | A.OFFPC_ITS ---
Vital Signs 08/18/24 08:09 08/18/24 08:29 Height 5 ft 6 in Weight 245 lb 6 oz BMI 39.6 BP 154/65 H 124/64 Blood Pressure Location Lt brachial Lt brachial Position Sitting Sitting Respiration 14 Pulse 66 Pulse Source Pulse Oximeter Pulse Oximetry (%) 99 Oxygen Delivery Method Room Air Intake Visit Reasons: cpe Intake Note: annual physical [employer] Required: No Allergies No Known Allergies [No Known Allergies*] Allergy (Verified 08/18/24 08:20) Medication List - Last Reconciled 08/18/24 by Cori Brown, [facility]- cholecalciferol (vitamin D3) 50 mcg PO DAILY 30 days clonidine HCl 0.1 mg PO BEDTIME levothyroxine 75 mcg PO DAILY 90 days lisinopril-hydrochlorothiazide 10-12.5 mg 1 tab PO DAILY 1 month sertraline 75 mg (1.5 x 50 mg) PO DAILY 30 days Tobacco use date assessed: 10/30/23 Dental Screening Dental Screen Date: 08/18/24 Did you have a dental visit in the last 12 months?: No Did you have a dental problem in the last 6 months where you did not have access to dental care?: No Was dental information given to patient?: Patient has dentist HPI HPI Comments History of Present Illness Details 49-year-old female with hypertension, hy pothyroid, major depressive disorder, vitamin-D deficiency, generalized anxiety disorder, obesity, gallstones, Marked degenerative changes seen at L4-L5 and L5-S1, nabothian cyst is present in the cervix, benign hepatic cyst, colonic diverticulosis, family hx colon ca (mom) Social History - 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 - Exercise: Patient is on her feet for 6 -8 hours per day at work. - Family: Has a daughter experiencing pa beverly attacks, adding to her stress levels. - Pet: Owns a dog which positively impac ts her mood. - Stressors: Technological challenges at work have increased stress levels. Health Maintenance - Tetanus vaccination updated in 2020. - Deferred influenza vaccination but taisha ns to receive it at the workplace. - Referred for colonoscopy, pending due to scheduling constraints; Cologuard ordered as interim screening. - Mammogram postponed; patient encourage d to reschedule. - PAP smear scheduled for November. - Routine eye exam noted two years prior ; plans to schedule another. - Recommended to use salicylic acid body wash for keratosis pilaris. Patient of Dr. Del Toro here today for CPE: c/o perimenopause sx, including persistent hot flashes and an overall sensation of overheating. These symptoms began approximately one to two months ago. The patient notes that while she is still having regular menstrual periods, she experiences discomfort primarily characterized by night sweats and overheating during sleep, to the extent that she cannot cover her feet with a blanket. The symptoms are described as more annoying than intolerable. The patient reports experiencing these symptoms despite her continued regular menstrual cycles. Management options such as medication have been contemplated but not yet pursued, as the symptoms have been mostly manageable albeit annoying. She acknowledges awareness that perimenopause can last several years and expressed interest in addressing symptom management as it evolves. Otherwise feels well. Review of Systems - General: Reports night sweats, feeling of overheating. - Neurological: Denied headaches or abraham ting spells. - Cardiovascular: Denies chest pain; rep orts occasional heart palpitations when blood pressure is high. Has swelling at end of work day BLE, improves w/ elevation - Dermatological: Reports bumpy rash on left arm. Physical Exam Systems normal w/ additional notes: - Skin- Examination of the back revealed normal findings; mild keratosis pilaris on left arm. - HEENT- Hearing appears slightly dimini shed; normal ear findings; no wax obstruction. - Cardiovascular- Blood pressure recheck ed at 124/64 mmHg, improved from initial measurement. - Respiratory- Lungs clear to auscultati on with normal breathing. - Gastrointestinal- Abdomen non-tender o n palpation; bowel sounds present. - Extremities- No edema observed; noted varicosities. Results - Labs (November 2023): Normal blood count, electrolytes, kidney function, fasting glucose, liver function; cholesterol mildly elevated; vitamin D low; TSH elevated at 6.27. Plan - Perimenopause: Continue monitoring sym ptoms; further discussion on management and potential hormone therapy if symptoms become intolerable. - Essential Hypertension: Continue curre nt treatment regimen; blood pressure monitored and remains well-controlled. - Hypothyroidism: Levothyroxine dose rem ains unchanged; repeat TSH testing ordered. - Hypercholesterolemia: Encourage diet m odification and physical activity; lipid profile to be monitored. - Anxiety and Mood: Maintain current ser traline; encourage stress management strategies. - Keratosis Pilaris: Use salicylic acid body wash as an at-home remedy. - Overweight: Discuss healthy lifestyle modifications, increased physical activity, and dietary changes. - Varicose veins - use compression socks , elevate, monitor skin integrity. If worsens, notify PCP. Patient was informed and verbally consented to the use of an ambient scribe for clinic note documentation during this visit. Discussion Notes I discussed with the patient the nature of perimenopause symptoms, including their duration and progression. We explored management options to address severe symptoms and considered the potential for hormone therapy if the situation worsens. The importance of the colonoscopy was emphasized, given her family history and past gastrointestinal symptoms, with a plan to complete a Cologuard test in the interim. The patient understands the necessity of repeating thyroid and cholesterol labs and maintaining regular screenings, including mammograms and eye exams. I addressed the potential impact of working conditions on her hyp ertension and stress levels and recommended coping strategies. She was advised on home treatment for the rash on her arm. Her overall health maintenance plan was reviewed, and the importance of consistent screenings and vaccinations was reinforced. Patient Instructions - Monitor and record blood pressure at h ome. - Use salicylic acid-containing body was h for the arm rash. - Schedule and complete a mammogram. - Complete Cologuard test upon receipt. - Schedule a hearing test at [facility]. - Continue current medication regimen. - Engage in regular physical activity an d adopt a heart-healthy diet. - Follow up in six months for reviewed l abs and health assessment or sooner if symptoms change. [facility] Medical History (Updated 08/18/24 @ 09:32 by Cori Brown, [facility]) Thyroid disease Hypertension Morbid obesity Gallstones No pertinent past medical history Surgical History History of section Family History Father Diabetes mellitus HTN (hypertension) History of CVA (cerebrovascular accident) High cholesterol Mother Diabetes mellitus HTN (hypertension) Colon polyps Paternal Grandmother Diabetes mellitus Brother No problems noted. Brother No problems noted. Sister No problems noted. Sister No problems noted. Daughter No problems noted. 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 1. Little interest or pleasure in doing things: several days 2. Feeling down, depressed, or hopeless: several days 3. Trouble falling or staying asleep, or sleeping too much: several days 4. Feeling tired or having little energy: several days 5. Poor appetite or overeating: not at all 6. Feeling bad about yourself - or that you are a failure or have let yourself or your family down: not at all 7. Trouble concentrating on things, such as reading the newspaper or watching television: not at all 8. Moving or speaking so slowly that other people could have noticed. Or the opposite - being so fidgety or restless that you have been moving around a lot more than usual: not at all 9. Thoughts that you would be better off or of hurting yourself in some way: not at all Total score: 4 Depression Screening Interpretation: Negative Depression Screening Done: Yes 28336 - PHQ-9 Billing: Yes Source: Developed by Drs. Tony Gutiérrez, Danni Lim, Héctor Calle and colleagues, with an educational chu from [employer]. Thrive Questionnaire Date Thrive assessed: 08/18/24 I am a: Patient What is your living situation today?: I have a steady place to live Within the past 12 months, did the food you bought not last and you didn't have the money to get more?: Often true Within the past 12 months, did you worry whether your food would run out before you got money to buy more?: Never true Do you have trouble paying for medicines?: No Do you have trouble getting transportation to medical appointments?: No Do you have trouble paying your heating and electricity bill?: No Do you have trouble taking care of your child, family member or friend?: No Do you have trouble with day-to-day activities such as bathing, preparing meals, shopping, managing finances, etc.?: No Are you currently unemployed and looking for a job?: No Are you interested in more education?: No Please select the resources that you would like help with: None Currently or been in a relationship where the following occur: No concerns reported THRIVE Score: 1 AUDIT C Alcohol Use Questionnaire (AUDIT-C) 1. How often do you have a drink containing alcohol?: 2-3 times a week 2. How many drinks containing alcohol do you have on a typical day when you are drinking?: 1 or 2 3. How often do you have six or more drinks on one occasion?: Never Total Score: 3 Score Reviewed/Action Taken: Yes IBRAHIMA-7 AMB Questionnaire IBRAHIMA-7 Date IBRAHIMA - 7 assessed: 08/18/24 Feeling nervous, anxious, or on edge: 1 = Several days Not being able to stop or control worryin = Several days Worrying too much about different things: 1 = Several days Trouble relaxin = Several days Being so restless that it is hard to sit still: 0 = Not at all Becoming easily annoyed or irritable: 1 = Several days Feeling afraid as if something awful might happen: 0 = Not at all Total IBRAHIMA-7 score (0-4 normal; 5-9 mild; 10-14 moderate; 15-21 severe): 5 Source: Developed by Drs. Tony Gutiérrez, Danni Lim, Héctor Calle and colleagues, with an educational chu from [employer]. IBRAHIMA-7 Assessment Billing IBRAHIMA-7 Assessment Tool: IBRAHIMA-7 Assessment 89826 Physical exam (Primary Care) Vital Signs: Last Vital Signs Pulse 66 08/18/24 08:09 Resp 14 08/18/24 08:09 BP 154/65 H 08/18/24 08:09 Pulse Ox 99 08/18/24 08:09 Oxygen Delivery Method Room Air 08/18/24 08:09 BMI result Body Mass Index 39.6 BMI Assessment/Plan discussion: High BMI High, discussed plan: lifestyle Tobacco/Smoking Status: Tobacco use Status Tobacco use date assessed 10/30/23 08/18/24 08:02 Patient Tobacco Use Status Never used Tobacco 08/18/24 08:02 e-Cigarette/Vaping Use Never Used 08/18/24 08:02 PHQ-9: PHQ-9 Score PHQ-9: Total score 4 08/18/24 08:04 Depression Screening Interpretation: Negative Thrive Assessment: Date of Thrive Assessment Date Thrive assessed 08/18/24 08/18/24 08:04 Currently or been in a relationship where the following occur: No concerns reported Coding Level of Care Code Est Pt Prev Care 40-64y(11285) Diagnoses Encounter for general adult medical examination without abnormal findings Z00.00 Hypertension, essential I10 Vitamin D deficiency E55.9 Acquired hypothyroidism E03.9 Hypothyroidism type: acquired Hard of hearing H91.90 BMI 39.0-39.9,adult Z68.39 Severe obesity with body mass index (BMI) of 35.0 to 39.9 with comorbidity E66.01 Mild episode of recurrent major depressive disorder F33.0 Active/Remission status: currently active Major depression episode severity: mild Hyperlipemia E78.5 Family history of colon cancer in mother Z80.0 Varicose veins with swelling I83.899 Keratosis pilaris L85.8 Additional Codes IBRAHIMA-7 Assessment Billing - IBRAHIMA-7 Assessment Tool: IBRAHIMA-7 Assessment 98887 ([id number]) PHQ-9 - 10886 - PHQ-9 Billing: Yes ([id number]) Assessment & Plan Assessment & Plan (1) Encounter for general adult medical examination without abnormal findings: Code(s): Z00.00 - Encounter for general adult medical examination without abnormal findings (2) Hypertension, essential: Code(s): I10 - Essential (primary) hypertension Category: Medical (3) Vitamin D deficiency: Code(s): E55.9 - Vitamin D deficiency, unspecified Category: Medical (4) Hypothyroid: Code(s): E03.9 - Hypothyroidism, unspecified Category: Medical Qualifiers: Hypothyroidism type: acquired Qualified Code(s): E03.9 - Hypothyroidism, unspecified (5) Hard of hearing: Code(s): H91.90 - Unspecified hearing loss, unspecified ear Category: Medical (6) BMI 39.0-39.9,adult: Code(s): Z68.39 - Body mass index [BMI] 39.0-39.9, adult Category: Medical (7) Severe obesity with body mass index (BMI) of 35.0 to 39.9 with comorbidity: Comment: with HTN and HLD Code(s): E66.01 - Morbid (severe) obesity due to excess calories Category: Medical (8) Depression, major, recurrent: Code(s): F33.9 - Major depressive disorder, recurrent, unspecified Category: Medical Qualifiers: Active/Remission status: currently active Major depression episode severity: mild Qualified Code(s): F33.0 - Major depressive disorder, recurrent, mild (9) Hyperlipemia: Code(s): E78.5 - Hyperlipidemia, unspecified Category: Medical (10) Family history of colon cancer in mother: Code(s): Z80.0 - Family history of malignant neoplasm of digestive organs Category: Medical (11) Varicose veins with swelling: Code(s): I83.899 - Varicose veins of unspecified lower extremity with other complications Category: Medical (12) Keratosis pilaris: Code(s): L85.8 - Other specified epidermal thickening Category: Medical Plan . Orders: Orders Hemoglobin A1c Today E03.9 - Hypothyroidism, unspecified, E55.9 - Vitamin D deficiency, unspecified, I10 - Essential (primary) hypertension Vitamin D 25-OH Total Today E03.9 - Hypothyroidism, unspecified, E55.9 - Vitamin D deficiency, unspecified, I10 - Essential (primary) hypertension Comprehensive Met. Panel 6 Months E03.9 - Hypothyroidism, unspecified, E66.01 - Morbid (severe) obesity due to excess calories, E78.5 - Hyperlipidemia, unspecified, I10 - Essential (primary) hypertension, Z68.39 - Body mass index [BMI] 39.0-39.9, adult Comprehensive Met. Panel Today E03.9 - Hypothyroidism, unspecified, E55.9 - Vitamin D deficiency, unspecified, I10 - Essential (primary) hypertension Lipid Panel Today E03.9 - Hypothyroidism, unspecified, E55.9 - Vitamin D deficiency, unspecified, I10 - Essential (primary) hypertension TSH reflex Free T4 Today E03.9 - Hypothyroidism, unspecified, E55.9 - Vitamin D deficiency, unspecified, I10 - Essential (primary) hypertension Lipid Panel 6 Months E03.9 - Hypothyroidism, unspecified, E66.01 - Morbid (severe) obesity due to excess calories, E78.5 - Hyperlipidemia, unspecified, I10 - Essential (primary) hypertension, Z68.39 - Body mass index [BMI] 39.0- 39.9, adult TSH reflex Free T4 6 Months E03.9 - Hypothyroidism, unspecified, E66.01 - Morbid (severe) obesity due to excess calories, E78.5 - Hyperlipidemia, unspecified, I10 - Essential (primary) hypertension, Z68.39 - Body mass index [BMI] 39.0-39.9, adult Referrals Cologuard Test Z12.11 - Encounter for screening for malignant neoplasm of colon, Z12.12 - Encounter for screening for malignant neoplasm of rectum Gastroenterology Referral Z12.11 - Encounter for screening for malignant neoplasm of colon, Z80.0 - Family history of malignant neoplasm of digestive organs Audiology Referral H91.90 - Unspecified hearing loss, unspecified ear Patient Instructions: Health screenings for women You should visit your health care provider from time to time, even if you are healthy. The purpose of these visits is to: Screen for medical issues Assess your risk for future medical problems Encourage a healthy lifestyle Update vaccinations and other preventive care services Help you get to know your provider in case of an illness Information Even if you feel fine, you should still see your provider for regular checkups. These visits can help you avoid problems in the future. For example, the only way to find out if you have high blood pressure is to have it checked regularly. High blood sugar and high cholesterol levels also may not have any symptoms in the early stages. A simple blood test can check for these conditions. There are specific times when you should see your provider or receive specific health screenings. The [place] Preventive Services Task Force publishes a list of recommended screenings. Below are screening guidelines for women ages 18 to 39. BLOOD PRESSURE SCREENING Your blood pressure should be checked at least once every 3 to 5 years if: Your blood pressure is in the normal range (top number less than 120 mm Hg and bottom number less than 80 mm Hg) You don't have risk factors for high blood pressure Ask your provider if you need your blood pressure checked more often if: The top number is 120 to 129 mm Hg or the bottom number is 70 to 79 mm Hg You have diabetes, heart disease, kidney problems, are overweight, or have certain other health conditions You have a first-degree relative with high blood pressure You are Black You had high blood pressure during a If the top number is 130 mm Hg or greater or the bottom number is 80 mm Hg or greater, this is considered stage 1 hypertension. Schedule an appointment with your provider to learn how you can reduce your blood pressure. Watch for blood pressure screenings in your area. Ask your provider if you can stop in to have your blood pressure checked. BREAST CANCER SCREENING Experts do not agree about the benefits of breast self-exams in finding breast cancer or saving lives. Talk to your provider about what is best for you. A screening mammogram is not recommended for most women under age 40. Your provider may discuss and recommend mammograms, MRI scans, or ultrasounds if you have an increased risk for breast cancer, such as: A mother or sister who had breast cancer at a young age (most often starting screening earlier than the age the close relative was diagnosed) You carry a high-risk genetic marker CERVICAL CANCER SCREENING Cervical cancer screening should start at age 21 years unless your provider advises otherwise. After the first test: Women ages 21 through 29 should have a Pap test every 3 years. Exoprts do not agree on whether HPV testing is recommended for this age group. Women ages 30 through 65 should be screened with either a Pap test every 3 years or the HPV test every 5 years or both tests every 5 years (called cotesting ). Women who have been treated for precancer (cervical dysplasia) should continue to have Pap tests for 20 years after treatment or until age 65, whichever is longer. If you have had your uterus and cervix removed (total hysterectomy), and you have not been diagnosed with cervical cancer or precancer (high grade cervical neoplasia), you do not need cervical cancer screening. CHOLESTEROL SCREENING Cholesterol screening should begin at: Age 45 for women with no known risk factors for coronary heart disease Age 20 for women with known risk factors for coronary heart disease Repeat cholesterol screening should take place: Every 5 years for women with normal cholesterol levels More often if changes occur in lifestyle (including weight gain and diet) More often if you have diabetes, heart disease, kidney problems, or certain other conditions DIABETES SCREENING You should be screened for diabetes starting at age 35 and then repeated every 3 years if you have no risk factors for diabetes. Screening may need to start earlier and be repeated more often if you have other risk factors for diabetes, such as: You have a first degree relative with diabetes. You are overweight or have obesity. You have high blood pressure, prediabetes, or a history of heart disease. Screening for diabetes should be done if you are planning to become and you are overweight and have other risk factors such as high blood pressure. DENTAL EXAM Go to the dentist once or twice every year for an exam and cleaning. Your dentist will evaluate if you need more frequent visits. EYE EXAM Have an eye exam every 5 to 10 years before age 40. If you have vision problems, have an eye exam every 2 years or more often if recommended by your provider. You should have an eye exam that includes an examination of your retina (back of your eye) at least every year if you have diabetes. IMMUNIZATIONS Commonly needed vaccines include: Flu shot: get one every year. COVID-19 vaccine: ask your provider what is best for you. Tetanus-diphtheria and acellular pertussis (Tdap) vaccine: have one at or after age 19 as one of your tetanus-diphtheria vaccines if you did not receive it as an adolescent. Tetanus-diphtheria: have a booster (or Tdap) every 10 years. Varicella vaccine: receive 2 doses if you never had chickenpox or the varicella vaccine. Hepatitis B vaccine: receive 2, 3, or 4 doses, depending on your exact circumstances. Measles, mumps, and rubella (MMR) vaccine: receive 1 to 2 doses if you are not already immune to MMR. Your provider can tell you if you are immune. Ask your provider about the human papillomavirus (HPV) vaccine if: You have not received the HPV vaccine in the past You have not completed the full vaccine series (you should catch up on this shot) Ask your provider if you should receive other immunizations if you have certain health problems that increase your risk for some diseases such as pneumonia. INFECTIOUS DISEASE SCREENING Women who are sexually active should be screened for chlamydia and gonorrhea up until age 25. Women 25 years and older should be screened for chlamydia and gonorrhea if at high risk. Screening for hepatitis C: All adults ages 18 to 79 should get a one-time test for hepatitis C. people should be screened at every . Screening for human immunodeficiency virus (HIV): All people ages 15 to 65 should get a one-time test for HIV. Depending on your lifestyle and medical history, you may also need to be screened for infections such as syphilis and HIV, as well as other infections. PHYSICAL EXAM All adults should visit their provider from time to time, even if they are healthy. The purpose of these visits is to: Screen for disease Assess your risk of future medical problems Encourage a healthy lifestyle Update your vaccinations and other preventive care services Maintain a relationship with a provider in case of an illness Your height, weight, and BMI should be checked at every exam. During your exam, your provider may ask you about: Depression and anxiety Diet and exercise Alcohol and tobacco use Safety issues, such as using seat belts, smoke detectors, and intimate partner violence Your medicines and risk for interactions SKIN SELF-EXAM Your provider may check your skin for signs of skin cancer, especially if you're at high risk, such as if you: Have had skin cancer before Have close relatives with skin cancer Have a weakened immune system OTHER SCREENING Talk with your provider about colon cancer screening if you have a strong family history of colon cancer or polyps, or if you have had inflammatory bowel disease or polyps yourself. Routine bone density screening of women under 40 is not recommended.
[2024-08-18 08:09] VITALS: BP 154/65; PULSE 66; RESP 14; O2SAT 99; BMI 39.6
[2024-08-18 08:29] VITALS: BP 124/64
== END 2024-08-18 08:39 | disposition home or self-care (01) ==
PROVIDERS: PCP Family Medicine; Visit Provider Nurse Practitioner Family
DX: Z00.00 Encounter for general adult medical examination without abnormal findings (principal); F33.0 Major depressive disorder, recurrent, mild; E66.01 Morbid (severe) obesity due to excess calories; Z68.39 Body mass index [BMI] 39.0-39.9, adult; I10 Essential (primary) hypertension; E55.9 Vitamin D deficiency, unspecified; E03.9 Hypothyroidism, unspecified; H91.90 Unspecified hearing loss, unspecified ear; E78.5 Hyperlipidemia, unspecified; Z80.0 Family history of malignant neoplasm of digestive organs; I83.899 Varicose veins of unspecified lower extremity with other complications; L85.8 Other specified epidermal thickening

== ENCOUNTER → 2024-08-18 07:53 | Outpatient (BNVA) | payer OTHER, SELFPAY | PROVIDERS: PCP Family Medicine; Visit Provider Nurse Practitioner Family | DX: Z00.00 Encounter for general adult medical examination without abnormal findings (principal); I10 Essential (primary) hypertension; E55.9 Vitamin D deficiency, unspecified; E03.9 Hypothyroidism, unspecified; H91.90 Unspecified hearing loss, unspecified ear; F33.0 Major depressive disorder, recurrent, mild; E78.5 Hyperlipidemia, unspecified; L85.8 Other specified epidermal thickening; I83.899 Varicose veins of unspecified lower extremity with other complications; Z80.0 Family history of malignant neoplasm of digestive organs; E66.01 Morbid (severe) obesity due to excess calories; Z68.39 Body mass index [BMI] 39.0-39.9, adult; Z71.3 Dietary counseling and surveillance | CPT/HCPCS: 96127; 99396 ==

== ENCOUNTER 2024-08-18 08:50 | Outpatient (REF) | payer OTHER, SELFPAY ==
[2024-08-18 11:31] LABS: Estimated Average Glucose 108 mg/dL; Hemoglobin A1C 121.0209 umol/L; Hemoglobin A1c % 5.4 % (<6.0); Total Hemoglobin (HGBA1C) 3429.3037 umol/L
[2024-08-18 12:11] LABS: Alanine Aminotransferase 15 U/L (0-31); Alkaline Phosphatase 67 U/L (39-117); Anion Gap 9 (12-20); Aspartate Amino Transferase 19 U/L (5-31); Bilirubin Total 0.4 mg/dL (0.0-1.0); Blood Urea Nitrogen 12 mg/dL (9-16); Calcium 9.1 mg/dL (8.4-10.2); Carbon Dioxide 28 mmol/L (22-29); Chloride 105 mmol/L (96-108); Cholesterol 205 mg/dL (<200); Estimated Glomerular Filt Rate > 60; Glucose Random 98 mg/dL (60-115); HDL Cholesterol 49 mg/dL (>40); LDL Cholesterol Calculated 134 mg/dL (<100); Potassium 3.8 mmol/L (3.3-5.1); Sodium 138 mmol/L (135-145); TSH reflex Free T4 3.69 uIU/mL (0.32-4.0); Total Protein 7.2 g/dL (6.5-8.0); Triglycerides 110 mg/dL (<150); Vitamin D 25-OH Total 30.8 ng/mL (>30)
== END 2024-08-18 08:51 | disposition home or self-care (01) ==
LOC: HO.WFDLDS 08:50
PROVIDERS: Visit Provider Nurse Practitioner Family
DX: E03.9 Hypothyroidism, unspecified (principal); I10 Essential (primary) hypertension; E55.9 Vitamin D deficiency, unspecified
CPT/HCPCS: 36415; 80053; 80061; 82306; 83036; 84443